=== PATIENT | male | born 1985 | race Caucasian/White ===

== ENCOUNTER 2016-11-09 19:20 | Emergency (ER) | payer OTHER ==
[~2016-11-09] VITALS: Ht 188 cm; Wt 94.1 kg
[2016-11-09 23:18] LABS: ADD MIUA? NO; BILIRUBIN NEGATIVE; BLOOD NEGATIVE; COLOR YELLOW ((YELLOW)); GLUCOSE (STRIP) NEGATIVE; KETONES NEGATIVE; LEUKOCYTES NEGATIVE; NITRITE NEGATIVE; PROTEIN (STRIP) NEGATIVE; SPECIFIC GRAVITY 1.016 (1.000-1.030); UCUL ADDED? NO; UROBILINOGEN 0.2 MG/DL (0.2-1.0)
[2016-11-10 00:21] VITALS: BP 142/84
[2016-11-11 13:38] LABS: CHLAMYDIA TRACHOMATIS NEGATIVE; NEISSERIA GONORRHOEAE NEGATIVE
== END 2016-11-10 00:31 | disposition home or self-care (01) ==
LOC: EME 19:20
PROVIDERS: Physician Assistant; Physician Assistant Medical
DX: N50.89 Other specified disorders of the male genital organs (principal); Z72.0 Tobacco use
CPT/HCPCS: 76870; 81003; 87491; 87591; 99281; 99284